=== PATIENT | male | born 2005 | race Caucasian/White ===

== ENCOUNTER 2024-06-20 10:24 | Emergency (ER) | payer OTHER, SELFPAY ==
[2024-06-20] MEDS ORDERED: Acetaminophen 500 MG TAB ONE (11:11)
[2024-06-20] MEDS ORDERED: diphenhydrAMINE 50 MG/ML VIAL ONE (11:11)
[2024-06-20] MEDS ORDERED: Promethazine HCl 25 MG/ML VIAL ONE (11:17)
[2024-06-20 11:20] LABS: #Basophils 0.03 10x3/uL (0.0-0.2); %Basophils 0.4 % (0.0-1.0); %Eosinophils 3.5 % (0.0-10.0); %Lymphocytes 8.2 % (21.0-51.0); %Monocytes 10.7 % (0.0-10.0); %Neutrophils 76.8 % (42.0-75.0); Hematocrit 45.7 % (42.0-52.0); Hemoglobin 15.8 g/dL (14.0-18.0); Mean Corpuscular HGB CONC 34.6 g/dL (32.0-36.0); Mean Corpuscular Hemoglobin 28.2 pg (27.0-31.0); Mean Corpuscular Volume 81.6 fL (78.0-98.0); Mean Platelet Volume 10.5 fL (7.4-10.4); Platelet Count 179 10x3/uL (130-400); RBC Distribution Width 13.5 % (11.5-14.5)
[2024-06-20 11:35] LABS: ALT (SGPT) 48 U/L (8-55); AST (SGOT) 28 U/L (5-34); Albumin 4.3 g/dL (3.5-5.0); Alkaline Phosphatase 89 U/L (40-110); Anion Gap 15 mmol/L (10-20); BUN (Urea Nitrogen) 11 mg/dL (8.9-20.6); Bilirubin, Total 0.4 mg/dL (0.2-1.2); Calc. Creatinine Clearance 0 mL/min (70-130); Calcium 8.9 mg/dL (7.8-10.44); Carbon Dioxide 21 mmol/L (22-29); Chloride 104 mmol/L (98-107); Estimated GFR 102; Globulin 3.1 g/dL (2.4-3.5); Glucose 109 mg/dL (70-105); Potassium 3.6 mmol/L (3.5-5.1); Protein, Total 7.4 g/dL (6.0-8.3); Sodium 136 mmol/L (136-145)
== END 2024-06-20 13:20 | disposition home or self-care (01) ==
LOC: ERS 10:24
DX: J10.1 Influenza due to other identified influenza virus with other respiratory manifestations (principal)
CPT/HCPCS: 80053; 83605; 85025; 87081; 87428; 87430; 96361; 96374; J1200; J2550